=== PATIENT | male | born 1950 | race Two or more races ===

== ENCOUNTER 2021-04-17 07:08 | Outpatient (CLI) | payer OTHER | END 2021-04-17 07:09 | disposition home or self-care (01) | LOC: LAB 07:08 → RAD 07:08 → LAB 07:09 | PROVIDERS: ATTEND Internal Medicine Hematology & Oncology | DX: M25.561 Pain in right knee (principal) ==

== ENCOUNTER → 2022-02-21 | Outpatient (CLI) | payer OTHER | END | disposition home or self-care (01) | LOC: SONOGRAMA 15:03 | PROVIDERS: ATTEND Internal Medicine Hematology & Oncology | DX: N40.1 Benign prostatic hyperplasia with lower urinary tract symptoms (principal); R33.9 Retention of urine, unspecified ==

== ENCOUNTER 2022-07-25 14:37 | Outpatient (CLI) | payer OTHER | END 2022-07-25 14:45 | disposition home or self-care (01) | LOC: RAD 14:37 | DX: M62.830 Muscle spasm of back (principal); M54.2 Cervicalgia ==

== ENCOUNTER 2023-08-22 09:59 | Outpatient (CLI) | payer OTHER ==
[2023-08-22 11:16] LABS: MYCOPLASMA PNEUMONIAE IGM NON REACTIVE (NO REACTIVE)
== END 2023-08-22 15:09 | disposition home or self-care (01) ==
LOC: LAB 09:59
PROVIDERS: ATTEND Internal Medicine Hematology & Oncology
DX: D64.2 Secondary sideroblastic anemia due to drugs and toxins (principal); J06.9 Acute upper respiratory infection, unspecified